=== PATIENT | female | born 1940 ===

== ENCOUNTER 2021-06-13 06:30 | Day surgery (SDC) | payer OTHER ==
[~2021-06-13] VITALS: Ht 165.1 cm; Wt 86.2 kg
[~2021-06-13 06:30] MED LIST: ATORVASTATIN CA10 MG PO; COZAAR50 MG PO; VERAPAMIL ER240 MG PO
[2021-06-13] MEDS ORDERED: DIAZEPAM5 MG PO (09:33)
[2021-06-13] MEDS ORDERED: AMOX-CLAV 875-1 EACH PO (09:33)
[2021-06-13] MEDS ORDERED: NEURONTIN800 MG PO (09:33)
[2021-06-13] MEDS ORDERED: MEDROLPACK PO (09:33)
[2021-06-13] MEDS ORDERED: COLACE100 MG PO (09:33)
[2021-06-13] MEDS ORDERED: PERCOCET 5-3251 EACH PO (09:33)
== END 2021-06-14 12:27 | disposition home or self-care (01) ==
LOC: SURH 06:30 → CIR.AMB 06:30 → O/R 06:30 → SURH 11:15 → EDSTATUS 12:30 → O/R 14:33 → SURH 14:33 → CIR.AMB 06-14 12:27
PROVIDERS: ATTEND Orthopaedic Surgery Orthopaedic Surgery of the Spine
PROC: 0SG10J1 Fusion of 2 or more Lumbar Vertebral Joints with Synthetic Substitute, Posterior Approach, Posterior Column, Open Approach (ICD-10-PCS; 2021-06-13)
PROC: 07DR3ZZ Extraction of Iliac Bone Marrow, Percutaneous Approach (ICD-10-PCS; 2021-06-13)
PROC: 0SG10A0 Fusion of 2 or more Lumbar Vertebral Joints with Interbody Fusion Device, Anterior Approach, Anterior Column, Open Approach (ICD-10-PCS; principal; 2021-06-13 11:15)
DX: M43.16 Spondylolisthesis, lumbar region (principal); M48.062 Spinal stenosis, lumbar region with neurogenic claudication
CPT/HCPCS: 20938; 20939; 22533; 22612; 22614; 22845; C1776